=== PATIENT | male | born 1990 | race Hispanic/Latino ===

== ENCOUNTER 2019-10-12 19:57 | Emergency (ER) | payer OTHER ==
[2019-10-12] MEDS ORDERED: IBUPROFEN 800 MG TAB ONE (20:16)
== END 2019-10-12 20:52 | disposition home or self-care (01) ==
LOC: EDH 19:57
DX: J09.X2 Influenza due to identified novel influenza A virus with other respiratory manifestations (principal); Z72.0 Tobacco use
CPT/HCPCS: 87804